=== PATIENT | male | born 1950 | race Caucasian/White ===

== ENCOUNTER 2016-09-06 19:19 | Observation (INO) ==
[2016-09-06] MEDS ORDERED: Aspirin 81 MG TAB.CHEW PO ONE (19:33)
[2016-09-06 19:52] LABS: Basophils # 0.1 K/mcL (0.0-0.2); Basophils % 0.9 %; Eosinophils # 0.2 K/mcL (0.0-0.6); Eosinophils % 2.5 %; Hemoglobin 13.7 g/dL (12.9-16.9); Immature Granulocytes % 0.4 % (0-4); Lymphocytes # 1.8 K/mcL (0.6-4.6); Lymphocytes % 26.9 %; Mean Corpuscular HGB Conc 31.9 g/dL (31.6-35.5); Mean Corpuscular Hemoglobin 28.9 pg (28.0-33.3); Mean Corpuscular Volume 90.7 fL (83.0-100.0); Mean Platelet Volume 10.2 fL (9.4-12.4); Monocytes # 0.9 K/mcL (0.0-1.3); Monocytes % 13.8 %; Neutrophils # 3.8 K/mcL (1.6-8.9); Platelet Count 233 K/mcL (140-400); Red Blood Count 4.74 M/mcL (4.19-5.50); Red Cell Distribution Width 14.2 % (11.5-14.5); Segmented Neutrophils % 55.5 %
[2016-09-06] MEDS ORDERED: Nitroglycerin 0.4 MG TAB.SUBL SL PRN (19:56)
[2016-09-06 19:59] LABS: INR 0.9; Prothrombin Time 9.9 Seconds (9.4-12.1)
--- NOTE | 2016-09-06 20:00 | Emergency Department Note ---
Disposition Clinical Impression: Unstable angina, NEHEMIAS (acute kidney injury) Disposition: Admitted As Inpatient Condition: Good Chest Pain HPI - General Chief Complaint: ED Chest Pain Stated Complaint: Chest Pain Time Seen by Provider: 09/06/16 19:24 Source: patient Mode of arrival: ambulatory Limitations: no limitations Vital Signs Reviewed: Yes Nursing Notes Reviewed: Yes - History of Present Illness HPI Narrative: 66-year-old male history of hypertension, diabetes, hyperlipidemia and ACS status post 5 stents placed presents for evaluation of chest pain. Patient states the pain started approximately 3 days ago has been intermittent. Patient 's pain 3 days ago resolved after nitroglycerin and patient became concerned and presented to ER today after the pain would not resolve entirely from his nitroglycerin. Patient's pain was nonexertional he was driving Patient states the pain is left-sided with radiation of the right arm and left jaw. Reports dyspnea as well as nausea. Patient states that he has been taking his aspirin and Plavix as directed. Patient stents were placed at [facility]. Patient's last heart catheter was last year. Patient denies any other symptoms. No fevers. No cough. 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 Duration: intermittent, now resolved Onset: during rest Pain Location: left chest Quality: heaviness Pain Radiation: RUE, jaw/teeth - Related Data Home Medications Medication Instructions Recorded Confirmed Aspirin 81 mg PO DAILY 01/07/15 05/28/16 Insulin Glargine,Hum.rec.anlog 20 unit SQ 01/07/15 05/28/16 [Lantus Solostar] Isosorbide MONOnitrate (24 HR) 60 mg PO HS 01/07/15 05/28/16 [Imdur] Levomefolate/B6/B12/Algal Oil 90 mg PO BID 01/07/15 05/28/16 [Metanx Capsule] Lisinopril [Zestril] 2.5 mg PO DAILY 01/07/15 05/28/16 Loratadine [Claritin] 10 mg PO BID 01/07/15 05/28/16 Metformin [Glucophage] 1,000 mg PO BID 01/07/15 05/28/16 Metoprolol XL (24 HR) Succ [Toprol 50 mg PO DAILY 01/07/15 05/28/16 XL] Nortriptyline [Pamelor] 75 mg PO HS 01/07/15 05/28/16 Ranolazine [Ranexa] 1,000 mg PO BID 01/07/15 05/28/16 Rosuvastatin [Crestor] 20 mg PO HS 01/07/15 05/28/16 Saxagliptin HCl [Onglyza] 5 mg PO QAM 01/07/15 05/28/16 Previous Rx's Medication Instructions Recorded Clopidogrel [Plavix] 75 mg PO HS #0 01/09/15 Omeprazole [PriLOSEC] 40 mg PO 0730 #30 capsule 01/09/15 Hydrocodone/Acetaminophen 1 each PO Q6H PRN #15 tablet 05/28/16 [Hydrocodon-Acetaminophn 10-325] Allergies Allergy/AdvReac Type Severity Reaction Status Date / Time adhesive Allergy Hives Verified 09/06/16 19:52 morphine AdvReac Intermediate hallucinati Verified 09/06/16 19:52 ons trihexyphenidyl [From Artane] AdvReac Intermediate hallucinati Verified 19:52 ons meperidine [From Demerol] AdvReac Mild blood Verified 09/06/16 19:52 pressure fluctuation All systems ED: reviewed and negative except as stated. Constitutional: Reports: as per HPI. Denies: fever Eyes: Reports: as per HPI ENT ED: Reports: as per HPI Cardiovascular: Reports: as per HPI, chest pain. Denies: palpitations Respiratory: Reports: as per HPI, dyspnea. Denies: cough Gastrointestinal: Reports: as per HPI, nausea. Denies: abdominal pain Genitourinary: Reports: as per HPI Musculoskeletal: Reports: as per HPI Integumentary: Reports: as per HPI Neurological: Reports: as per HPI Psychiatric: Reports: as per HPI Endocrine: Reports: as per HPI Chest Pain PMH - Past Medical History Medical history: Reports: coronary artery disease, diabetes, GERD, other Surgical history: Reports: angioplasty/stent, appendectomy, cholecystectomy, knee replacement, other Psychiatric history: Reports: no psych history - Social History Smoking Status: Current every day smoker Alcohol use: Reports: none Drug use: Reports: none Physical Exam - General Limitations: no limitations General appearance: alert, in no apparent distress - Head Head exam: atraumatic, normal inspection - Eye Eye exam: Present: normal appearance, EOMI. Absent: scleral icterus - ENT ENT exam: normal exam, normal oropharynx - Neck Neck exam: Present: normal inspection. Absent: trachea midline - Chest Chest inspection: Present: normal inspection, symmetric chest wall rise. Absent : tenderness - Respiratory Respiratory exam: Present: normal lung sounds bilaterally. Absent: respiratory distress - Cardiovascular Cardiovascular exam: Present: regular rate, normal rhythm - Abdominal Exam Abdominal exam: Present: soft, Non-Tender. Absent: guarding, rebound - Extremities Exam Extremities exam: Present: normal inspection. Absent: pedal edema - Back Exam Back exam: Present: normal inspection, full ROM. Absent: tenderness - Neurological Exam Neurological exam: Present: alert, oriented X3 - Skin Skin exam: Present: warm, dry, intact, normal color Course Course Narrative: Patient seen and examined upon arrival. Patient states his pain has resolved. Patient's pain would not completely resolve after his nitroglycerin earlier today. Patient had a cardiac workup including chest x-ray, EKG, labs,. Patient given full dose aspirin. Disposition likely admission. - Reevaluation(s) Reevaluation #1: Patient is pain free. Labs reviewed. Patient has no needs at this time. Time: 20:41 Reevaluation #2: Awaiting for bed on floor. Time: 23:16 Vital Signs Temperature 98.1 F 09/06/16 19:25 Pulse Rate 83 09/06/16 19:25 Respiratory Rate 20 09/06/16 19:25 Blood Pressure 125/77 09/06/16 19:25 O2 Sat by Pulse Oximetry 96 09/06/16 19:25 Temperature 98.1 F 09/06/16 19:25 Pulse Rate 74 09/06/16 22:15 Respiratory Rate 20 09/06/16 23:01 Blood Pressure 122/81 09/06/16 23:01 O2 Sat by Pulse Oximetry 96 09/06/16 22:15 Oxygen Delivery Oxygen Delivery Room Air Chest Pain - MDM Narrative Medical decision making narrative: 66-year-old male presents for evaluation of chest pain. Patient does have a cardiac history and has a concerning story and evaluation. Patient's pain has resolved in the emergency department. Patient vitals are stable. Patient's lab work reviewed. Patient's EKG shows no acute changes from prior EKG. Chest x-ray is unremarkable. Patient will be admitted to the hospitalist service for further evaluation and monitoring of his cardiac pathology. - Lab Data Lab results reviewed: Yes I reviewed the patient's lab results. Result diagrams: 09/06/16 19:37 09/06/16 19:37 Lab Results 09/06/16 09/06/16 09/06/16 Range/Units 19:37 19:37 19:37 WBC 6.8 (4.3-11.1) K/mcL RBC 4.74 (4.19-5.50) M/mcL Hgb 13.7 (12.9-16.9) g/dL Hct 43.0 (37.5-50.1) % MCV 90.7 (83.0-100.0) fL MCH 28.9 (28.0-33.3) pg MCHC 31.9 (31.6-35.5) g/dL RDW 14.2 (11.5-14.5) % Plt Count 233 (140-400) K/mcL MPV 10.2 (9.4-12.4) fL Immature Gran % 0.4 (0-4) % Seg Neutrophils % 55.5 % Lymphocytes % 26.9 % Monocytes % 13.8 % Eosinophils % 2.5 % Basophils % 0.9 % Neutrophils # 3.8 (1.6-8.9) K/mcL Lymphocytes # 1.8 (0.6-4.6) K/mcL Monocytes # 0.9 (0.0-1.3) K/mcL Eosinophils # 0.2 (0.0-0.6) K/mcL Basophils # 0.1 (0.0-0.2) K/mcL Reactive Lymphocytes Present A (Not Present) PT 9.9 (9.4-12.1) Seconds INR 0.9 APTT 32.4 (26.0-36.0) Seconds Sodium 138 (136-145) mEq/L Potassium 4.3 (3.5-4.5) mEq/L Chloride 101 (98-109) mEq/L Carbon Dioxide 25 (19-29) mEq/L BUN 12 (8-26) mg/dL Creatinine 1.27 H (0.72-1.25) mg/dL Est GFR ( Amer) > 60 (> 60) Est GFR (Non-Af Amer) 57 L (> 60) BUN/Creatinine Ratio 9 (6-26) Glucose 127 H (70-99) mg/dL Calculated Osmolality 287 (280-300) Calcium 9.7 (8.6-10.8) mg/dL Troponin I (0-0.03) ng/mL 09/06/16 Range/Units 19:37 WBC (4.3-11.1) K/mcL RBC (4.19-5.50) M/mcL Hgb (12.9-16.9) g/dL Hct (37.5-50.1) % MCV (83.0-100.0) fL MCH (28.0-33.3) pg MCHC (31.6-35.5) g/dL RDW (11.5-14.5) % Plt Count (140-400) K/mcL MPV (9.4-12.4) fL Immature Gran % (0-4) % Seg Neutrophils % % Lymphocytes % % Monocytes % % Eosinophils % % Basophils % % Neutrophils # (1.6-8.9) K/mcL Lymphocytes # (0.6-4.6) K/mcL Monocytes # (0.0-1.3) K/mcL Eosinophils # (0.0-0.6) K/mcL Basophils # (0.0-0.2) K/mcL Reactive Lymphocytes (Not Present) PT (9.4-12.1) Seconds INR APTT (26.0-36.0) Seconds Sodium (136-145) mEq/L Potassium (3.5-4.5) mEq/L Chloride (98-109) mEq/L Carbon Dioxide (19-29) mEq/L BUN (8-26) mg/dL Creatinine (0.72-1.25) mg/dL Est GFR ( Amer) (> 60) Est GFR (Non-Af Amer) (> 60) BUN/Creatinine Ratio (6-26) Glucose (70-99) mg/dL Calculated Osmolality (280-300) Calcium (8.6-10.8) mg/dL Troponin I 0.00 (0-0.03) ng/mL - Radiology Data Radiology results reviewed: Yes I reviewed the patient's radiology results. Chest X-Ray 09/06/16 19:33 IMPRESSION: 1. No acute cardiopulmonary disease. D/ / Dwayne Pate MD / Dwayne Pate MD Interpreting Provider: Dwayne Pate MD - EKG Data EKG shows normal: sinus rhythm Rate: normal Rhythm: NSR [place]/QRS: left axis deviation Q waves: v1 T wave inversions noted in: III, aVF QTc: other (424) Interpretation: no acute changes, unchanged when compared to prior tracing (date ) (04/2015), nonspecific ST-T wave changes Heart Score - Score History: Highly Suspicious EKG: Non Specific repolarisation Disturbance Age: 45-65 Risk Factors: Equal/Greater than 3 risk factor or history of atherosclerotic disease Troponin: Less than normal limit HEART Score Total: 6 S.B.A.R. - S.B.A.RLyudmila Situation: Demographics Background: Presenting Complaint Assessment: Vital Signs, Course and respsone to treatment Recommendation: Barrier(s) to disposition, Recommendation based on pending studies, treatments, or consults S.B.A.RLyudmila Report Given to: Dr. Silverman SLyudmilaBLyudmilaAImmanuel Repor Time: 21:12 Attestation Statement - Attestation Attestation: I examined this patient and my medical decision-making was reviewed with the INCOME TAX AUDITOR/PA/Advanced Practice Nurse/Resident Physician. I agree with the documented findings, disposition and treatment plan as described except to the extent set forth below. Patient to the emergency department with a chief complaint of chest pain. He has had 3-4 episodes over the past couple of days. The last one happened tonight while he was driving. Substernal chest pressure radiating down his right arm. Also pain in his left jaw. Associated with nausea and diaphoresis. He has an extensive cardiac history including 5 stents. Last stress test with a year ago. Patient's pain resolved tonight up to 3 nitroglycerin. On examination he is awake alert comfortable sitting up in bed in no acute distress. Vital signs stable. Heart regular lungs clear. Plan. EKG is unchanged from prior. Cardiac workup and admission.
[2016-09-06 20:02] LABS: Activated Partial Thrombo Time 32.4 Seconds (26.0-36.0)
[2016-09-06 20:04] LABS: BUN/Creatinine Ratio 9 (6-26); Blood Urea Nitrogen 12 mg/dL (8-26); Calcium 9.7 mg/dL (8.6-10.8); Carbon Dioxide 25 mEq/L (19-29); Chloride 101 mEq/L (98-109); Glucose 127 mg/dL (70-99); Osmolality,Calculated 287 (280-300); Potassium 4.3 mEq/L (3.5-4.5); Sodium 138 mEq/L (136-145); eGFR For African Americans > 60 (> 60); eGFR For Non-African Americans 57 (> 60)
[2016-09-06 20:12] LABS: Reactive Lymphocytes Present (Not Present)
[2016-09-06] MEDS ORDERED: Naloxone 0.4 MG/ML INJ IVP PRN (21:46)
[2016-09-06] MEDS ORDERED: Acetaminophen 325 MG TABLET PO PRN (21:48)
[2016-09-06] MEDS ORDERED: 0.9 % Sodium Chloride 1,000 ML IVC SCH (22:00)
--- NOTE | 2016-09-06 22:16 | Event Note ---
Date of Encounter: 09/06/16 Time of Encounter: 22:14 1. Chest pain with history of CAD status post 5 stents, nitro helped ECHO ordered Continue aspirin and Plavix, stress test for the morning 2. Hypertension, stable 3. GERD, stable 4. Diabetes type 2 insulin-dependent weeks Continue insulin sliding scale Please review H and P written by DAHIANA Arcos.
--- NOTE | 2016-09-06 22:22 | Internal Med History&Physical ---
<Lilli Arcos - Last Filed: 09/06/16 22:23> Date of Encounter: 09/06/16 Time of Encounter: 22:18 Assessment and Plan (1) Chest pain Current visit: No Status: Acute 1 patient has been experiencing intermittent chest pain past 3 days which has been relieved with nitroglycerin however today for chest pain not relieved with nitroglycerin. 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 Presently he is chest pain-free prescribed troponins negative will continue to cycle cardiac troponins 2 we will continue with statin Plavix aspirin and beta zack and we will hold these for now due to elevated creatinine recently once back to baseline 3 obtain cardiac echo 4 patient nothing by mouth after midnight cardiac stress in the a.m. we will hold beta zack and resume after cardiac stress 5 have patient follow-up with cardiology as outpatient consult as needed 6 continuous cardiac monitoring 7 nitroglycerin as needed for chest pain 8 oxygen as needed and maintain SPO2 greater than 92% Qualifiers: Chest pain type: unspecified Qualified Code(s): R07.9 - Chest pain, unspecified (2) NEHEMIAS (acute kidney injury) Current visit: Yes Status: Acute 1. The patient's creatinine is 1.27 baseline appears to be around 1. Patient is on lisinopril as well as metformin will hold these for now and resume once back to baseline 2 we will give gentle IV fluids overnight and we will recheck creatinine in a.m. 3 we will avoid nephrotoxins (3) HTN (hypertension) Current visit: Yes Status: Acute 1 she has been hypotensive we will hold lisinopril for now and resume once creatinine /blood pressure back to baseline 2 low sodium diet Qualifiers: Hypertension type: essential hypertension Qualified Code(s): I10 - Essential (primary) hypertension (4) Diabetes Current visit: No Status: Chronic 1 patient is on oral antidiabetics as well as basal insulin. We will hold oral antidiabetic for now Accu-Cheks before meals at bedtime. Patient will be nothing by mouth after midnight and check Accu-Cheks every 6 hours half patient' s basal dose this evening and give sliding scale as needed. Qualifiers: Diabetes mellitus type: type 2 Diabetes mellitus complication status: without complication Qualified Code(s): E11.9 - Type 2 diabetes mellitus without complications (5) DVT prophylaxis Current visit: Yes Status: Acute 1 [facility] Internal Medicine - H&P: HPI Chief complaint: cp Admitted From: Emergency Dept Plans for Post Hospital Care: Home History of present illness: Mr. Simmons is a 66 year old male past medical hx of hypertension diabetes hyperlipidemia ACL status post 5 stents stent in 2012. Patient he has been experiencing intermittent chest pain for 3 days and chest pain has been resolved with nitroglycerin today patient experiencing left-sided chest pain radiating to right arm and left jaw was nonexertional occurring while he was driving. Associated symptoms of nausea and diaphoresis he did take 3 nitroglycerin without any relief. He presented to the ER for further evaluation. According to ER records first cardiac Troponin was 0.0, creatinine was 1.27 rest of lab work unremarkable chest x-ray with no acute process EKG normal sinus rhythm with no changes from previous EKG. Patient was given baby aspirin he was admitted for further evaluation. Obi patient denies any chest pain or palpitations however he does state he feels very fatigued and experiencing general malaise. He does not appear to be any respiratory distress is on sounds are clear heart sounds S1 and S2 with no rubs gallops murmurs or clicks noted. Patient states that he normally sees cardiology at [facility] his last cardiac catheter was then 2015 at that time he said he has chronically 60% blockage of a does not know where the blockage is located. He is hemodynamically stable at this time review this case with Dr. Paz who agrees with plan Past Med Surg Social Fam HX - Past Medical History Medical history: coronary artery disease, diabetes, GERD, other Psychiatric history: no psych history - Past Surgical History Surgical History: angioplasty/stent, appendectomy, cholecystectomy, knee replacement, other - Social History Smoking Status: Current every day smoker Smokeless Tobacco Status: No Alcohol use: none Drug use: none - Family History Mother Hx Family Cardiac Disorders: Yes Internal Medicine - H&P: Meds Aspirin 81 mg PO DAILY 01/07/15 [History] Insulin Glargine,Hum.rec.anlog [Lantus Solostar] 20 unit SQ HS 01/07/15 [History ] Isosorbide MONOnitrate (24 HR) [Imdur] 60 mg PO HS 01/07/15 [History] Levomefolate/B6/B12/Algal Oil [Metanx Capsule] 90 mg PO BID 01/07/15 [History] Lisinopril [Zestril] 2.5 mg PO DAILY 01/07/15 [History] Loratadine [Claritin] 10 mg PO BID 01/07/15 [History] Metformin [Glucophage] 1,000 mg PO BID 01/07/15 [History] Metoprolol XL (24 HR) Succ [Toprol XL] 50 mg PO DAILY 01/07/15 [History] Nortriptyline [Pamelor] 75 mg PO HS 01/07/15 [History] Ranolazine [Ranexa] 1,000 mg PO BID 01/07/15 [History] Rosuvastatin [Crestor] 20 mg PO HS 01/07/15 [History] Saxagliptin HCl [Onglyza] 5 mg PO QAM 01/07/15 [History] Clopidogrel [Plavix] 75 mg PO HS #0 01/09/15 [Rx] Omeprazole [PriLOSEC] 40 mg PO 0730 #30 capsule 01/09/15 [Rx] Hydrocodone/Acetaminophen [Hydrocodon-Acetaminophn 10-325] 1 each PO Q6H PRN # 15 tablet 05/28/16 [Rx] Allergies adhesive Allergy (Verified 09/06/16 19:52) Hives morphine Adverse Reaction (Intermediate, Verified 09/06/16 19:52) hallucinations trihexyphenidyl [From Artane] Adverse Reaction (Intermediate, Verified 09/06/16 19:52) hallucinations meperidine [From Demerol] Adverse Reaction (Mild, Verified 09/06/16 19:52) blood pressure fluctuation All Systems PM: A 10-system review of systems was performed and is negative for pertinent findings except as documented above in the HPI. - Constitutional Constitutional: fatigue, malaise - Cardiovascular Cardiovascular ROS IM: chest pain - Respiratory Respiratory: no cough, no dyspnea, no wheezing, no excessive phlegm production - Gastrointestinal Gastrointestinal: nausea - Musculoskeletal Musculoskeletal ROS IM: no numbness, no tingling - Integumentary Integumentary IM: no rash, no unusual bruising - Neurological Neurological ROS: no confusion, no convulsions, no focal weakness, no numbness, no tingling, no tremor(s) - Constitutional Vitals: Temp Pulse Resp BP Pulse Ox 98.1 F 81 20 119/87 95 09/06/16 19:25 09/06/16 21:15 09/06/16 21:15 09/06/16 21:15 09/06/16 21:15 General appearance: Present: A&O X 3, answers questions appropriately - Head Head exam: Present: atraumatic, normocephalic - Eye Eye exam: Present: PERRL, conjuntiva pink, sclera anicteric Pupils: Present: PERRL - Neck Neck exam general surgery: Present: supple, trachea midline. Absent: lymphadenopathy - Respiratory Respiratory exam: Present: CTAB. Absent: accessory muscle use, rales, rhonchi, wheezes - Cardiovascular Cardiovascular exam: Present: RRR, +S1, +S2. Absent: diastolic murmur, gallop, rubs, systolic murmur - GI/Abdominal GI/Abdominal exam: Present: normal bowel sounds, soft, no peritoneal signs. Absent: distended, tenderness - Extremities Exam Extremities exam: Present: warm, radial pulses palpable and symetrical. Absent : calf tenderness, cyanotic, pedal edema - Neurological Exam Neurological exam: Present: CN II-XII intact, oriented X3, no focal deficits. Absent: pronater drift, facial droop, speech deficit - Skin Skin exam: Present: dry, intact Internal Med - H&P Results - Labs CBC & Chem 7: 09/06/16 19:37 09/06/16 19:37 - EKG Data EKG shows normal: sinus rhythm - EKG Data Prior EKG available for review: yes When compared to previous EKG: there is no significant change - Diagnostic Studies Chest x-ray Additional comments: Chest X-Ray 09/06/16 19:33 IMPRESSION: 1. No acute cardiopulmonary disease. D/ / Dwayne Pate MD / Dwayne Pate MD Interpreting Provider: Dwayne Pate MD <Talon Harman H - Last Filed: 09/06/16 23:25> Date of Encounter: 09/06/16 Internal Medicine - H&P: HPI History of present illness: Mr. Simmons is a 66 year old male All Systems PM: A 10-system review of systems was performed and is negative for pertinent findings except as documented above in the HPI. - Constitutional Vitals: Temp Pulse Resp BP Pulse Ox 98.1 F 74 20 122/81 96 09/06/16 19:25 09/06/16 22:15 09/06/16 23:01 09/06/16 23:01 09/06/16 22:15 Internal Med - H&P Results - Labs CBC & Chem 7: 09/06/16 19:37 09/06/16 19:37 - Attending Attestation 1. Chest pain with history of CAD status post 5 stents, nitro helped ECHO ordered Continue aspirin and Plavix, stress test for the morning 2. Hypertension, stable 3. GERD, stable 4. Diabetes type 2 insulin-dependent weeks Continue insulin sliding scale Please review H and P written by DAHIANA Arcos. I examined this patient and my medical decision-making was reviewed with the VALUATION MANAGER/PA/Advanced Practice Nurse/Resident Physician. I agree with the documented findings, disposition and treatment plan as described except to the extent set forth below.
[2016-09-06] MEDS ORDERED: Dextrose Gel 15 GM PO PRN ×2 (23:24)
[2016-09-06] MEDS ORDERED: D5% in Water 1,000 ML IVC PRN (23:24)
[2016-09-06] MEDS ORDERED: *HR* Dextrose 50 % in Water (Syg) 50 ML SYRINGE IVP PRN (23:24)
[2016-09-07 01:48] LABS: Basophils % 0.6 %; Eosinophils # 0.1 K/mcL (0.0-0.6); Eosinophils % 2.3 %; Hematocrit 40.7 % (37.5-50.1); Immature Granulocytes % 0.5 % (0-4); Lymphocytes # 2.1 K/mcL (0.6-4.6); Lymphocytes % 34.2 %; Mean Corpuscular HGB Conc 31.9 g/dL (31.6-35.5); Mean Corpuscular Hemoglobin 28.7 pg (28.0-33.3); Mean Corpuscular Volume 89.8 fL (83.0-100.0); Mean Platelet Volume 10.2 fL (9.4-12.4); Monocytes # 0.7 K/mcL (0.0-1.3); Monocytes % 10.8 %; Neutrophils # 3.2 K/mcL (1.6-8.9); Platelet Count 220 K/mcL (140-400); Red Blood Count 4.53 M/mcL (4.19-5.50); Red Cell Distribution Width 14.3 % (11.5-14.5); Segmented Neutrophils % 51.6 %
[2016-09-07 01:52] LABS: BUN/Creatinine Ratio 13 (6-26); Blood Urea Nitrogen 13 mg/dL (8-26); Calcium 9.2 mg/dL (8.6-10.8); Carbon Dioxide 24 mEq/L (19-29); Chloride 104 mEq/L (98-109); Chol/HDL Ratio 3.8 (0-4.9); Cholesterol 133 mg/dL (< 200); Glucose 128 mg/dL (70-99); HDL Cholesterol 35 mg/dL (40-59); LDL Cholesterol,Calculated 57 mg/dL (0-99); Osmolality,Calculated 288 (280-300); Potassium 3.8 mEq/L (3.5-4.5); Sodium 138 mEq/L (136-145); Triglycerides 206 mg/dL (< 150); eGFR For African Americans > 60 (> 60); eGFR For Non-African Americans > 60 (> 60)
[2016-09-07] MEDS ORDERED: Regadenoson 0.4 MG/5 ML SYRINGE IVP ONE (06:24)
[2016-09-07] MEDS ORDERED: Aspirin 81 MG TAB.CHEW PO SCH (09:00)
[2016-09-07] MEDS ORDERED: Ranolazine 500 MG TAB.ER.12H PO SCH (09:00)
[2016-09-07] MEDS ORDERED: Metoprolol XL (24 HR) Succ 50 MG TAB.ER.24H PO SCH (09:00)
[2016-09-07 11:19] VITALS: BP 124/80
[2016-09-07] MEDS: Insulin LISPRO 300 UNITS/3 ML VIAL SQ SCH (11:33)
--- NOTE | 2016-09-07 11:38 | ECHO - Doppler Report ---
Echocardiogram Name: Scott Simmons Date of Study: 09/07/2016 Date: 1950 Ht: 67.0 in Medical Record#: [id number] Age: 66 Wt: 250.0 lb Gender: Male BSA: 2.22 Order #: [id number] Location: [facility] Room #: 3B37 Reading Physician: Donovan Hays MD, [facility] Assistant District Attorney: Jerzy Hightower RDCS Ordering Physician: Lilli Arcos CNP Primary Physician: Shimon Solano DO Indications: Chest pain Impressions: LVEF 60-65%. Mild concentric left ventricular hypertrophy. No evidence of pulmonary hypertension. No significant valvular dysfunction. Left Ventricular Wall Motion: Rest Echo Findings All wall segments showed normal motion. Findings: Study Quality * Technically adequate exam. Right Ventricle * Normal right ventricular structure and function. Left Atrium * Normal left atrial size. Aortic Valve * Trileaflet aortic valve with normal function. Mitral Valve * Normal mitral valve structure and function. Aorta * Normally sized aortic root. Pericardium * The pericardium appears normal. ECG Findings * Normal sinus rhythm. Tricuspid Valve * Trace tricuspid regurgitation. * No evidence of pulmonary hypertension. * Estimated RVSP is 17 mmHg. * No tricuspid stenosis. Pulmonic Valve * No pulmonic stenosis. * No pulmonic regurgitation. Left Ventricle * LVEF 60-65%. * Mild concentric left ventricular hypertrophy. * Indeterminate diastolic function. Interatrial Septum * Interatrial septum not well evaluated. Right Atrium * Right atrium is not well visualized. History Hypertension Diabetes Hypercholesteremia History of Smoking Years 46 Packs Family History of CAD History of CAD/PTCA Myocardial Infarction 07/11/15 a Previous Echo was performed. Measurements: BP: 120/ 79 2D Normal Values RVIDd: 3.09 cm <2.7 cm IVSd: 1.20 cm 0.6 - 1.0 cm LVIDd: 4.53 cm 3.7 - 5.6 cm LVPWd: 1.23 cm 0.6 - 1.1 cm LVIDs: 3.17 cm 1.5 - 3.6 cm AO: 3.50 cm < 4.0 cm LA: 3.50 cm 2.0 - 4.0cm %FS: 30.00 cm >25 % LA volume: 35 Mitral Valve Peak E:.44 m/sec Peak A:.83 m/sec E/A Ratio:0.5 Peak E' Lat Mamadou:11 cm/s Peak E' Med Mamadou:5.87 cm/s E/E' Lat Ratio:4 E/E' Med Ratio:7.5 Tricuspid Valve TV Regurg Peak Grad: 18.00mmHg TV Regurg Peak Mamadou: 2.13m/sec Updated by Donovan Hays MD, [facility] on 09/07/2016 11:33:18 AM electronically signed on 09/07/2016 11:33:34 AM with status of Final Wall Motion Perez: 1=Normal, 2=Hypokinesis, 3=Akinesis, 4=Dyskinesis, 5=Aneurysmal, 6=Hyperkinetic, X=Not Visualized (Blank)=Missing
--- NOTE | 2016-09-07 11:52 | Nuclear Medicine Stress Report ---
Regadenoson Nuclear Stress Name: Scott Simmons Date of Study: 09/07/2016 Date: 1950 Ht: 67.0 in Medical Record#: [id number] Age: 66 Wt: 174.0 lb Gender: Male Order #: [id number] Location: [facility] Room: [place] Supervising Provider: Jonathon Tavera CNP Reading Physician: Donovan Hays MD, [facility] Ordering Physician: Amalia Yost CNP Primary Care Physician: Shimon Solano DO Stress Technologist: Lela Flores, [place] I&C Technician: Iggy Gaines Indications: Chest Pain, Coronary Artery Disease Impression: Perfusion imaging was negative for ischemia or infarct. Pharmacologic ECG was non diagnostic for ischemia. Patient had no chest pain with stress. Normal hemodynamic response. Gated EF = 69%. There is no evidence of TID. History: Hypertension Diabetes Hypercholesteremia History of Smoking Prior PCI Stress Test Summary: Stress Test Type: Treadmill Regadenoson 0.4mg/5ml given IV Protocol: Donovan Baseline Information: Initial Heart Rate: 89 Blood Pressure: 112/78 Stress Information: Test Terminated Due to (primary): As per protocol Maximum Blood Pressure: 118/62 Maximum Heart Rate: 104 Percent Maximum Heart Rate Achieved: 67 Double Product: 44722 METS Reached: 1 Symptoms: Shortness of breath Nuclear Summary: SPECT myocardial perfusion imaging using Tc99m Sestamibi given intravenously was performed at rest and following cardiac stress testing. The resting images were obtained following initial dose of 11.5 mCi. Following stress an additional dose of 34.9 mCi was given at peak exercise or 30 seconds post regadenoson infusion. Medication Given: Time Medication Dose Units Route Findings: Stress Note * Resting ECG demonstrated normal sinus rhythm. * No baseline arrhythmias were noted. * Pharmacologic stress ECG is non diagnostic for ischemia due to failure to reach target heartrate. * Occasional PVCs noted during stress. * Patient had no chest pain during stress. Hemodynamic responses * Normal hemodynamic responses to pharmacologic stress. Study Quality * Study quality is good. Gated EF % * Gated EF = 69%. Left Ventricle * The left ventricle is not dilated. NORMALS * Normal wall motion. * Normal segmental perfusion in stress. * Normal Segmental Perfusion in rest. TID * No evidence of transient ischemic dilatation. Updated by Donovan Hays MD, FACC on 09/07/2016 11:46:42 AM electronically signed on 09/07/2016 11:47:22 AM with status of Final
--- NOTE | 2016-09-07 13:23 | Discharge Summary ---
Date of Encounter: 09/07/16 Time of Encounter: 12:30 - Discharge Diagnosis (1) Chest pain Priority: Primary Status: Resolved Comments: Patient denied chest pain or shortness of breath throughout this admission. Chest x-ray negative. Troponins negative. Echocardiogram unremarkable. Stress test negative. ACS ruled out. (2) GERD (gastroesophageal reflux disease) Priority: Secondary Status: Chronic Comments: Denies current symptoms Qualifiers: Esophagitis presence: esophagitis presence not specified Qualified Code(s) : K21.9 - Gastro-esophageal reflux disease without esophagitis (3) Coronary artery disease Priority: Secondary Status: Chronic (4) Diabetes Priority: Secondary Status: Chronic Comments: Relatively well controlled with an A1c of 7.3%, recommend continued follow-up outpatient. (5) Hyperlipemia Priority: Secondary Status: Chronic Comments: Triglycerides elevated, rest of lipid panel unremarkable. Recommend continue statin and low-cholesterol diet. Qualifiers: Hyperlipidemia type: mixed hyperlipidemia Qualified Code(s): E78.2 - Mixed hyperlipidemia (6) History of Parkinson's disease Priority: Secondary Status: Chronic (7) NEHEMIAS (acute kidney injury) Priority: Primary Status: Resolved (8) HTN (hypertension) Priority: Secondary Status: Chronic Comments: Controlled with his regular home medications, follow up outpatient Qualifiers: Hypertension type: essential hypertension Qualified Code(s): I10 - Essential (primary) hypertension (9) DVT prophylaxis Priority: Primary Status: Acute Comments: Observation patient. Up ad vasiliy. - Discharge Medications Home Medications: Aspirin 81 mg PO DAILY 01/07/15 [History] Isosorbide MONOnitrate (24 HR) [Imdur] 60 mg PO DAILY 01/07/15 [History] Lisinopril [Zestril] 2.5 mg PO DAILY 01/07/15 [History] Loratadine [Claritin] 10 mg PO BID 01/07/15 [History] Metformin [Glucophage] 1,000 mg PO BID 01/07/15 [History] Metoprolol XL (24 HR) Succ [Toprol XL] 50 mg PO DAILY 01/07/15 [History] Nortriptyline [Pamelor] 75 mg PO HS 01/07/15 [History] Ranolazine [Ranexa] 1,000 mg PO BID 01/07/15 [History] Rosuvastatin [Crestor] 20 mg PO HS 01/07/15 [History] Saxagliptin HCl [Onglyza] 5 mg PO QAM 01/07/15 [History] Clopidogrel [Plavix] 75 mg PO HS #0 01/09/15 [Rx] Amlodipine [Norvasc] 5 mg PO HS 09/06/16 [History] Carbidopa/Levodopa/Entacapone [Stalevo 100 Tablet] 1 each PO QID 09/06/16 [ History] Isosorbide MONOnitrate (24 HR) [Imdur] 30 mg PO HS 09/06/16 [History] Lansoprazole [Prevacid] 30 mg PO BID 09/06/16 [History] Allergies/Adverse Reactions: Allergies adhesive Allergy (Verified 09/06/16 19:52) Hives morphine Adverse Reaction (Intermediate, Verified 09/06/16 19:52) hallucinations trihexyphenidyl [From Artane] Adverse Reaction (Intermediate, Verified 09/06/16 19:52) hallucinations meperidine [From Demerol] Adverse Reaction (Mild, Verified 09/06/16 19:52) blood pressure fluctuation Procedures/tests Complete & Pending: Procedures Performed prior 72 hours Category Date Time Status NM madyson perf SPECT multi [NM] Routine Exams 09/06/16 22:17 Taken EV echocardiogram Routine Y 09/07/16 21:52 Completed SP pharm nuclear stress Routine Y 09/06/16 22:16 Completed Date of admission: 09/06/16 21:26 Primary care physician: Shimon Solano Discharging clinician: Amalia Yost Anticipated date of discharge: 09/07/16 - Patient Status Disposition: Home, Self-Care Condition: Good Functional capacity at discharge: independent ambulation Overall status at discharge: patient is back to baseline - Discharge Instructions Follow Up With: Shimon Solano DO [Primary Care Provider] - Additional Instructions: Follow-up with primary care provider within one to 2 weeks - Diet and Activity Activity: increase activity as tolerated Diet: diabetic diet, low fat, low cholesterol, low salt diet Hospital course: Mr. Simmons is a 66 year old male with past medical history of hypertension, diabetes, hyperlipidemia, CAD status post stent 5. Patient stating he had been experiencing intermittent chest pains 3 days and the chest pain on the day of presentation had resolved with nitroglycerin and he began to experience left-sided chest pain that radiated to his right arm and left jaw that was exertional while he was driving. Associated symptoms include nausea and diaphoresis and he took 3 nitroglycerin tablets without relief. Workup in the emergency department unremarkable other than a mild acute kidney injury. Chest x-ray negative. Patient was admitted to the hospitalist service for further evaluation and management. Troponins negative 3. Echocardiogram unremarkable with ejection fraction of 60-65%. Nuclear stress test negative for skin meal or infarct. Patient denied chest pain or shortness of breath throughout this admission. Acute coronary syndrome ruled out. Acute kidney injury also resolved. He was discharged home in stable condition with close outpatient follow-up recommended. ITS Impressions Chest X-Ray 09/06/16 19:33 IMPRESSION: 1. No acute cardiopulmonary disease. D/ / Dwayne Pate MD / Dwayne Pate MD Interpreting Provider: Dwayne Pate MD Echocardiogram impressions: LVEF 60-65%. Mild concentric left ventricular hypertrophy. No Evidence of pulmonary hypertension. No significant valvular dysfunction. Regadenosen nuclear stress test impression: Perfusion imaging was negative for ischemia or infarct. Pharmacologic ECG is nondiagnostic for ischemia. Patient had no chest pain with stress. Normal hemodynamic response. Gated ejection fraction equals 69%. There is no evidence of TID - Time Spent with Patient Total time spent providing and/or coordinating discharge services: - Constitutional Vitals: Temp Pulse Resp BP Pulse Ox 98.0 F 82 15 124/80 95 09/07/16 11:18 09/07/16 11:18 09/07/16 11:18 09/07/16 11:18 09/07/16 11:18 General appearance: Present: A&O X 3, pleasant, no acute distress, answers questions appropriately - Head Head exam: Present: atraumatic, normocephalic - Eye Eye exam: Present: PERRL, conjuntiva pink, sclera anicteric Pupils: Present: PERRL - Neck Neck exam general surgery: Present: supple, trachea midline. Absent: lymphadenopathy - Respiratory Respiratory exam: Present: CTAB. Absent: accessory muscle use, rales, respiratory distress, rhonchi, wheezes - Cardiovascular Cardiovascular exam: Present: RRR, +S1, +S2. Absent: diastolic murmur, gallop, rubs, systolic murmur - GI/Abdominal GI/Abdominal exam: Present: normal bowel sounds, soft, no peritoneal signs. Absent: distended, tenderness - Extremities Exam Extremities exam: Present: warm, radial pulses palpable and symetrical. Absent : calf tenderness, cyanotic, pedal edema - Neurological Exam Neurological exam: Present: alert, CN II-XII intact, normal gait, oriented X3, no focal deficits, strengths equal and symetr throughout. Absent: pronater drift, facial droop, speech deficit - Skin Skin exam: Present: dry, intact, normal color, warm
--- NOTE | 2016-09-07 20:34 | Electrocardiograph Report ---
[address] [address] Test Date: 2016-09-06 Pat Name: Scott Simmons Department: 102 Room: 3B Gender: M [employer]: : 1950 Requested By: Mary See Order Number: [id number] Reading MD: Donovan Hays MD Measurements Intervals [place] Rate: 81 P: 11 VT: 190 QRS: -40 QRSD: 115 T: -9 QT: 386 QTc: 424 Interpretive Statements SINUS RHYTHM MARKED LEFT AXIS DEVIATION Poor R wave progression Electronically Signed On 09-07-2016 20:32:54 EDT by Donovan Hays MD
[2016-09-07] MEDS ORDERED: Isosorbide MONOnitrate (24 HR) 60 MG TAB.ER.24H PO SCH (21:00)
[2016-09-07] MEDS ORDERED: Insulin LISPRO 300 UNITS/3 ML VIAL SQ SCH (21:00)
== END 2016-09-07 15:37 | disposition home or self-care (01) ==
LOC: EMEROO 19:19 → 3BNU 19:19
PROVIDERS: ADMIT Internal Medicine; ATTEND Nurse Practitioner Family

== ENCOUNTER 2018-10-03 16:22 | Observation (INO) ==
--- NOTE | 2018-10-03 16:28 | Emergency Department Note ---
Disposition Clinical Impression: Transient cerebral ischemia, Low blood sugar, Generalized weakness Disposition: Admitted As Inpatient Condition: Fair Time of Disposition: 02:14 General Adult HPI - General Chief complaint: ED Neuro Symptoms/Deficit Stated complaint: neuro symptoms Time Seen by Provider: 10/03/18 16:28 - History of Present Illness HPI Narrative: 68-year-old male past medical history of Parkinson's disease previous TIAs presenting greater than 24 hours after onset of neuro symptoms. Patient states approximately 12 PM yesterday he developed lightheadedness, dizziness, upper lip numbness, upper family shaking and lower extremities weakness the point where he was not able to put weight on his legs. Patient states the symptoms continued and proximally 6 PM that night and spontaneous resolved. Patient states he is asymptomatic at this time has no pain, review systems is negative he has no other concerns or complaints at this time. Onset (ago): day(s) Pain Scale: 0 - Related Data Home Medications Medication Instructions Recorded Confirmed Aspirin 81 mg PO DAILY 01/07/15 10/03/18 Nortriptyline [Pamelor] 75 mg PO HS 01/07/15 10/04/18 metFORMIN [Glucophage] 1,000 mg PO BID 01/07/15 10/04/18 amLODIPine [Norvasc] 5 mg PO HS 09/06/16 10/04/18 Metoprolol [Lopressor] 100 mg PO BID 09/07/16 10/04/18 Atorvastatin [Lipitor] 40 mg PO HS 10/03/18 10/04/18 Metoclopramide [Reglan] 10 mg PO DAILY 10/03/18 10/04/18 raNITIdine HCl [Ranitidine HCl] 150 mg PO BID 10/03/18 10/04/18 Carbidopa/Levodopa ER 50/200 1 tab PO TID 10/04/18 10/04/18 [Sinemet ER 50-200 Tab] Clopidogrel [Plavix] 75 mg PO DAILY 10/04/18 10/04/18 Isosorbide MONOnitrate (24 HR) 60 mg PO BID 10/04/18 10/04/18 [Imdur] Loratadine [Allergy Relief] 10 mg PO DAILY 10/04/18 10/04/18 Nitroglycerin [Nitrostat] 0.4 mg PO Q5MIN PRN 05/20/19 05/20/19 Ranolazine [Ranexa] 1,000 mg PO BID 10/04/18 10/04/18 Allergies Allergy/AdvReac Type Severity Reaction Status Date / Time adhesive Allergy Hives Verified 10/04/18 16:00 morphine AdvReac Intermediate hallucinati Verified 10/04/18 16:00 ons trihexyphenidyl [From Artane] AdvReac Intermediate hallucinati Verified 10/04/18 16:00 ons meperidine [From Demerol] AdvReac Mild blood Verified 10/04/18 16:00 pressure fluctuation Review of Systems: Constitutional: Denies: fever, chills Cardiovascular: Denies: chest pain Respiratory: Denies: dyspnea Gastrointestinal: Denies: abdominal pain, nausea, vomiting, diarrhea, constipation, hematemesis, melena, hematochezia Genitourinary: Denies: hematuria Musculoskeletal: Denies: back pain, neck pain Integumentary: Denies: rash Neurological: Denies: headache, weakness, numbness, paresthesias Endocrine: Denies: fatigue Hematological/Lymphatic: Denies: easy bleeding, easy bruising, lymphadenopathy All systems ED: reviewed and negative except as stated. Review of Systems: As Per HPI Past Medical History - Past Medical History Medical history: Reports: cancer, coronary artery disease, diabetes, GERD, hyperlipidemia, hypertension, myocardial infarction, other Surgical history: Reports: angioplasty/stent, appendectomy, cataract, cholecystectomy, knee replacement, vascular surgery, other Psychiatric history: Reports: no psych history - Social History Smoking Status: Current every day smoker Smokeless Tobacco Status: No Alcohol use: Reports: none Drug use: Reports: none Physical Exam NIH score is 0 Constitutional: No acute distress, [id number], engaged to conversation, speech is fluid, answers questions appropriately Neuro: GCS 15, CN II-XII are grossly intact, reflexes 2/4 in bilateral upper and lower extremities, strength 5/5 in bilateral upper and lower extremities Head: Atraumatic, normocephalic Eyes: Pupils equal, round and reactive to light, external ocular muscles intact, no scleral icterus, no conjunctival injection, no nystagmus. Mouth: Mucous membranes are moist, oropharynx is without edema, erythema, or exudate. No tongue swelling, lip swelling, perioral cyanosis, drooling, or trismus. Neck: Trachea midline without deviation. Anterior neck is supple without swelling, no lymphadenopathy or thyromegaly noted. Chest: Symmetric chest wall rise Heart: Cardiac rhythm and rate are regular with S1 and S2 , no S3 or S4 appreciated, no murmurs, rubs, or clicks. Lungs: Lungs are clear to auscultation bilaterally, without accessory muscle use or prolonged expiratory phase. No wheezes or stridor appreciated. Abdomen: Abdomen is flat, soft to palpation, normal bowel sounds, no evidence of bruising, surgical incisions, or abnormal mass. No abdominal bruit auscultated. Non-distended, non-rigid, no organomegaly, no ascites appreciated. No pulsatile mass, no tenderness or guarding to palpation, no rebound Extremities: No pedal edema, joint swelling or erythema. Pulses/motor/sensory intact in all 4 extremities. Psychiatric exam: Patient displays a normal affect and mood for the environment. No overt signs of hallucination. Integumentary: warm, dry, intact, normal color. No rash, cyanosis, diaphoresis, erythema, or pallor - General Limitations: no limitations General appearance: alert, in no apparent distress Course Course Narrative: Basic labs, CT scan of the head Vital Signs Temperature 97.9 F 10/03/18 16:24 Pulse Rate 69 10/03/18 16:24 Respiratory Rate 18 10/03/18 16:24 Blood Pressure 129/77 10/03/18 16:24 O2 Sat by Pulse Oximetry 95 10/03/18 16:24 Temperature 97.9 F 10/03/18 23:29 Pulse Rate 62 10/03/18 23:29 Respiratory Rate 16 10/03/18 23:29 Blood Pressure 113/73 10/03/18 23:29 O2 Sat by Pulse Oximetry 94 10/03/18 23:29 Oxygen Delivery Oxygen Delivery Room Air Medical Decision Making - [facility] Narrative Medical decision making narrative: Patient's laboratory, EKG, and imaging results negative for acute pathology Patient admitted to hospital medicine service further evaluation and management of TIA. - Lab Data Lab results reviewed: Yes I reviewed the patient's lab results. Result diagrams: 10/04/18 02:30 10/04/18 07:04 Lab Results 10/03/18 10/03/18 10/03/18 Range/Units 17:34 17:34 18:38 WBC 7.0 (4.3-11.1) K/mcL RBC 4.08 L (4.19-5.50) M/mcL Hgb 12.5 L (12.9-16.9) g/dL Hct 39.0 (37.5-50.1) % MCV 95.6 (83.0-100.0) fL MCH 30.6 (28.0-33.3) pg MCHC 32.1 (31.6-35.5) g/dL RDW 13.4 (11.5-14.5) % Plt Count 209 (140-400) K/mcL MPV 10.2 (9.4-12.4) fL Sodium 137 (136-145) mEq/L Potassium 4.6 (3.5-5.1) mEq/L Chloride 100 (98-107) mEq/L Carbon Dioxide 27 (23-29) mEq/L BUN 16 (8-23) mg/dL Creatinine 0.91 (0.70-1.30) mg/dL Est GFR ( Amer) > 60 (> 60) Est GFR (Non-Af Amer) > 60 (> 60) BUN/Creatinine Ratio 18 (6-26) Glucose 59 L (70-105) mg/dL Calculated Osmolality 283 (280-300) Calcium 9.2 (8.6-10.3) mg/dL Troponin I < 0.03 (< 0.04) ng/mL Urine Color Yellow (Yellow) Urine Clarity Clear (Clear) Urine pH 6.5 (5.0-8.0) pH Units Ur Specific [place] 1.010 (1.010-1.025) Urine Protein Negative (Neg-Trace) mg/dL Urine Glucose (UA) Normal (Normal) mg/dL Urine Ketones Negative (Negative) mg/dL Urine Blood Negative (Negative) Urine Nitrite Negative (Negative) Urine Bilirubin Negative (Negative) Urine Urobilinogen Normal (Normal) mg/dL Ur Leukocyte Esterase Negative (Negative) Ur Culture Indicated? NO (NO) - Radiology Data Radiology results reviewed: Yes I reviewed the patient's radiology results. Head CT 10/03/18 17:18 IMPRESSION: No acute intracranial abnormality. D/ / Shimon Reddy MD / Shimon Reddy MD Interpreting Provider: Shimon Reddy MD Chest X-Ray 10/03/18 18:24 IMPRESSION: Stable portable study. D/ / Vicky Forman Cha, MD / Vicky Forman Cha, MD Interpreting Provider: Vicky Forman Cha, MD - EKG Data EKG #1 EKG attestation: Yes I reviewed and interpreted this EKG. EKG results narrative: Patient EKG shows sinus rhythm with a heart of 65 bpm, ID interval 208 ms, QS duration of 121 ms, QT/QTc interval 451/469 ms respectively. There are no significant ST segment elevations, depressions, there are abnormal Q waves noted in lead aVR which appears isolated to that lead and consistent with prior EKG, there is an abnormal T-wave inversion in lead V3 which appears isolated that lead, there is no signs of acute ischemic change. This EKG performed today is generally consistent with prior EKG performed on September 062016. Attestation Statement - Attestation Attestation: I have seen this patient with the resident physician, I have personally evaluated this patient. I had reviewed the chart and document dictation by the resident physician and aM in agreement with the information documented by the resident physician. Please see documentation by the resident physician for complete chart including past medical history, family medical history, review of systems, current history and physical and laboratory and imaging studies. I was present for all procedures, provided direct supervision for all procedures, was present for the entirety of all procedures and provided direct guidance during the procedures. Please see documentation by the resident physician for any procedures performed. I have reviewed all interpretations of EKGs, and reviewed all EKGs performed on patient's as well. I have also reviewed reports of imaging as provided by radiology.
[2018-10-03 18:07] LABS: Hemoglobin 12.5 g/dL (12.9-16.9); Mean Corpuscular HGB Conc 32.1 g/dL (31.6-35.5); Mean Corpuscular Hemoglobin 30.6 pg (28.0-33.3); Mean Corpuscular Volume 95.6 fL (83.0-100.0); Mean Platelet Volume 10.2 fL (9.4-12.4); Platelet Count 209 K/mcL (140-400); Red Blood Count 4.08 M/mcL (4.19-5.50); Red Cell Distribution Width 13.4 % (11.5-14.5)
[2018-10-03 18:17] LABS: BUN/Creatinine Ratio 18 (6-26); Blood Urea Nitrogen 16 mg/dL (8-23); Carbon Dioxide 27 mEq/L (23-29); Chloride 100 mEq/L (98-107); Glucose 59 mg/dL (70-105); Potassium 4.6 mEq/L (3.5-5.1); Sodium 137 mEq/L (136-145); eGFR For Non-African Americans > 60 (> 60)
[2018-10-03 18:18] LABS: Calcium 9.2 mg/dL (8.6-10.3); Osmolality,Calculated 283 (280-300); Troponin I < 0.03 ng/mL (< 0.04)
[2018-10-03 18:50] LABS: Bilirubin,Urine Negative (Negative); Blood,Urine Negative (Negative); Clarity,Urine Clear (Clear); Color,Urine Yellow (Yellow); Glucose,Urine (UA) Normal (Normal); Ketones,Urine Negative (Negative); Leukocyte Esterase,Urine Negative (Negative); Nitrite,Urine Negative (Negative); PH,Urine 6.5 pH Units (5.0-8.0); Protein,Urine Negative (Neg-Trace); Urobilinogen,Urine Normal (Normal)
--- NOTE | 2018-10-03 20:43 | Emergency Department Note ---
Disposition Clinical Impression: Transient cerebral ischemia, Low blood sugar, Generalized weakness Disposition: Admitted As Inpatient Condition: Fair Referrals: Shimon Solano DO [Primary Care Provider] - Forms: ED Satisfaction Letter General Adult HPI - General Chief complaint: ED Neuro Symptoms/Deficit Stated complaint: neuro symptoms Time Seen by Provider: 10/03/18 16:28 Source: family Limitations: no limitations Nursing Notes Reviewed: Yes Vital Signs Reviewed: Yes - History of Present Illness Pain Scale: 0 - Related Data Home Medications Medication Instructions Recorded Confirmed Aspirin 81 mg PO DAILY 01/07/15 09/07/16 Isosorbide MONOnitrate (24 HR) 60 mg PO TID 01/07/15 09/07/16 [Imdur] Lisinopril [Zestril] 2.5 mg PO DAILY 01/07/15 09/07/16 Loratadine [Claritin] 10 mg PO BID 01/07/15 09/07/16 Nortriptyline [Pamelor] 75 mg PO HS 01/07/15 09/07/16 Ranolazine [Ranexa] 1,000 mg PO BID 01/07/15 09/07/16 Rosuvastatin [Crestor] 20 mg PO HS 01/07/15 09/07/16 Saxagliptin HCl [Onglyza] 5 mg PO QAM 01/07/15 09/07/16 metFORMIN [Glucophage] 1,000 mg PO BID 01/07/15 09/07/16 Carbidopa/Levodopa/Entacapone 1 tab PO QID 09/06/16 09/07/16 [Stalevo 100 Tablet] Lansoprazole [Prevacid] 30 mg PO BID 09/06/16 09/07/16 amLODIPine [Norvasc] 2.5 mg PO HS 09/06/16 09/07/16 Metoprolol [Lopressor] 100 mg PO BID 09/07/16 09/07/16 Nitroglycerin [Nitrostat] 0.4 mg SL AD PRN 09/07/16 09/07/16 Previous Rx's Medication Instructions Recorded Clopidogrel [Plavix] 75 mg PO HS #0 01/09/15 Allergies Allergy/AdvReac Type Severity Reaction Status Date / Time adhesive Allergy Hives Verified 09/06/16 19:52 morphine AdvReac Intermediate hallucinati Verified 09/06/16 19:52 ons trihexyphenidyl [From Artane] AdvReac Intermediate hallucinati Verified 09/06/16 19:52 ons meperidine [From Demerol] AdvReac Mild blood Verified 09/06/16 19:52 pressure fluctuation Past Medical History - Past Medical History Medical history: Reports: cancer, coronary artery disease, diabetes, GERD, hyperlipidemia, hypertension, myocardial infarction, other Surgical history: Reports: angioplasty/stent, appendectomy, cataract, cholecystectomy, knee replacement, vascular surgery, other Psychiatric history: Reports: no psych history - Social History Smoking Status: Current every day smoker Smokeless Tobacco Status: No Alcohol use: Reports: none Drug use: Reports: none Physical Exam - General Limitations: no limitations General appearance: alert, in no apparent distress Course Vital Signs Temperature 97.9 F 10/03/18 16:24 Pulse Rate 69 10/03/18 16:24 Respiratory Rate 18 10/03/18 16:24 Blood Pressure 129/77 10/03/18 16:24 O2 Sat by Pulse Oximetry 95 10/03/18 16:24 Temperature 97.9 F 10/03/18 16:42 Pulse Rate 64 10/03/18 20:04 Respiratory Rate 18 10/03/18 20:04 Blood Pressure 125/77 10/03/18 20:04 O2 Sat by Pulse Oximetry 98 10/03/18 20:04 Oxygen Delivery Oxygen Delivery Room Air Medical Decision Making - MDM Narrative Medical decision making narrative: I have seen this patient with the resident physician, I have personally evaluated this patient. I had reviewed the chart and document dictation by the resident physician and aM in agreement with the information documented by the resident physician. Please see documentation by the resident physician for complete chart including past medical history, family medical history, review of systems, current history and physical and laboratory and imaging studies. I was present for all procedures, provided direct supervision for all procedures, was present for the entirety of all procedures and provided direct guidance during the procedures. Please see documentation by the resident physician for any procedures performed. I have reviewed all interpretations of EKGs, and reviewed all EKGs performed on patient's as well. I have also reviewed reports of imaging as provided by radiology. Patient presents emergency Department with chief complaint of neurologic symptoms that started yesterday around noon, majority of them seemed to resolve by about 6:00, however he has still felt generally weak today. He states that he was at lunch and all of a sudden started having problems using his bilateral upper extremities with increased shaking, states he could not even lift a coffee cup because he was shaking so much, states that he has Parkinson's disease and does have some problems intermittent shaking but this was worse than usual. He states that he then tried to stand up to walk to his car and typically will walk with a cane but states he was having significant difficulty with this and that his legs both of them felt weak. 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 He noticed that he was also having some right-sided facial tingling especially around his mouth and that he had significant vision changes within his right eye where he will had significant blurred vision in his right eye only. He seems to deny homonymous hemianopsia states that seems to only been his right eye and not right visual field but is not really sure now thinking about it. The patient states that he had a significant difficult time driving himself home he was having problems controlling his legs. He states that again however apart from the vision and the face there was no unilateral symptoms and this was bilateral. He states that he got home and checked his blood sugar it was in the 80s he states that he would have expected it to have been higher because he had just eaten pizza and states that it would usually be higher than this. He states he sat in a recliner and did not get up for about 6 hours because he was worried that he wo uld fall and did not feel well. He states that after about 6 hours the right sided facial symptoms and vision symptoms went away but he still felt generally weak but not as bad. He states he did eat and his blood sugar went up to 122 he thought he felt better after that but then all day today he is still felt generally more weak. He does not think he had any misadventures with his medications he is on metformin and on glimepride. Patient states that today he has not really had any symptoms apart from both of his legs feeling somewhat weak he states that last night he had to walk with a walker once he got out of the recliner which is not usual for him, he did not have to walk with a walker today was able to use his cane and felt better but not normal. The patient states he has had a history of TIAs and of strokes, he had to of these without noticing her having symptoms, his last stroke workup was several years ago. Patient denies recent fevers chills cough sputum production chest pain shortness of breath palpitations abdominal pain back pain cold or blue discoloration of his feet or legs. He states he did not really want to come to the emergency department today as he felt he was getting better but his forced him to do so. On physical examination he has no unilateral findings, he is able to hold both arms and both legs near for 10 seconds he has normal strength sensation and reflexes he does have some mild tremor of his bilateral upper extremities which she is able to overcome. Cranial nerves are intact speech is normal visual wagner seem grossly intact. Lungs are clear heart is regular 2/6 systolic murmur no rubs or gallops abdomen is soft nontender without palpable or pulsatile Mass. without ecchymosis. There is no significant peripheral edema. Workup here in the emergency department, including EKG basic laboratory studies head CT chest x-ray showed no significant acute abnormality although his blood sugar was 59, he is awake and talking, he was given food. It is unclear as to the exact etiology of this patient's symptoms, he does de scribe some symptoms yesterday that are more concerning for potential intracranial pathology with the vision change in unilateral facial weakness or numbness sensation, however some of the symptoms are very atypical in that he had otherwise bilateral symptoms of the upper and lower extremities is possible this could have been a hypoglycemic event, with mimicking of stroke although he just eaten, and his blood sugar was in the 80s when he got home about an hour after the initiation of symptoms and his symptoms are better now and his blood sugar is 59, with the patient's unilateral symptoms, no recent stroke workup multiple risk factors for stroke, plus the fact that he does have a lower blood sugar on a sulfonylurea, it was felt that admission to the hospital for observation, was appropriate for evaluation of potential TIA and stroke as well as borderline hypoglycemia on a sulfonylurea. - Lab Data Result diagrams: 10/03/18 17:34 10/03/18 17:34 Lab Results 10/03/18 10/03/18 10/03/18 Range/Units 17:34 17:34 18:38 WBC 7.0 (4.3-11.1) K/mcL RBC 4.08 L (4.19-5.50) M/mcL Hgb 12.5 L (12.9-16.9) g/dL Hct 39.0 (37.5-50.1) % MCV 95.6 (83.0-100.0) fL MCH 30.6 (28.0-33.3) pg MCHC 32.1 (31.6-35.5) g/dL RDW 13.4 (11.5-14.5) % Plt Count 209 (140-400) K/mcL MPV 10.2 (9.4-12.4) fL Sodium 137 (136-145) mEq/L Potassium 4.6 (3.5-5.1) mEq/L Chloride 100 (98-107) mEq/L Carbon Dioxide 27 (23-29) mEq/L BUN 16 (8-23) mg/dL Creatinine 0.91 (0.70-1.30) mg/dL Est GFR ( Amer) > 60 (> 60) Est GFR (Non-Af Amer) > 60 (> 60) BUN/Creatinine Ratio 18 (6-26) Glucose 59 L (70-105) mg/dL Calculated Osmolality 283 (280-300) Calcium 9.2 (8.6-10.3) mg/dL Troponin I < 0.03 (< 0.04) ng/mL Urine Color Yellow (Yellow) Urine Clarity Clear (Clear) Urine pH 6.5 (5.0-8.0) pH Units Ur Specific [place] 1.010 (1.010-1.025) Urine Protein Negative (Neg-Trace) mg/dL Urine Glucose (UA) Normal (Normal) mg/dL Urine Ketones Negative (Negative) mg/dL Urine Blood Negative (Negative) Urine Nitrite Negative (Negative) Urine Bilirubin Negative (Negative) Urine Urobilinogen Normal (Normal) mg/dL Ur Leukocyte Esterase Negative (Negative) Ur Culture Indicated? NO (NO)
--- NOTE | 2018-10-03 23:31 | Internal Med History&Physical ---
<Jairo Siegel S - Last Filed: 10/04/18 01:11> Date of Encounter: 10/04/18 Time of Encounter: 00:18 Internal Medicine - H&P: HPI Chief complaint: weakness Admitted From: Home Plans for Post Hospital Care: Home History of present illness: Mr. Simmons is a 68 year old male with PMH of multiple MO, stenting x 8, CAD, T2DM, Parkinson's, HTN, previous TIA x 3 and GERD. He comes in today with the chief complaint of weakness and neuro symptoms. Onset of neuro s/s >24hrs ago. He developed lightheadedness, dizziness and numbness yesterday around noon. He states that he had focal weakness of his LE and had facial numbness. No family members reported slurring of the speech or facial drooping. His symptoms spont aneously resolved and he is asymptomatic once he got here. He denies any pain, chest pain, numbness/tingling. 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 In the ER he was found to have a glucose of 59. He states that he usually runs between 115-120's in the morning and never goes above 150. He is followed by Dr Solano's as an outpatient. He states he didn't even realize he was hypoglycemic. He feels that usually when he gets hypoglycemic that he gets very flushed and diaphoretic, today that didn't happen. CT head negative for acute intracranial abnormality. XR chest negative for acute process. CBC unremarkable. Pt to be admitted for observation. Past Med Surg Social Fam HX - Past Medical History Medical history: cancer, coronary artery disease, diabetes, GERD, hyperli pidemia, hypertension, myocardial infarction, other Additional medical history: Kidney stones. Parkinsons. Prostate cancer. IBS Psychiatric history: no psych history - Past Surgical History Surgical History: angioplasty/stent, appendectomy, cataract, cholecystectomy, knee replacement, vascular surgery, other Additional surgical history: StentsX5: July 2015 most recent. Bilat knees. Rotator blade heart sx. Vein ligation left leg. Prostate removed - Social History Smoking Status: Current every day smoker Smokeless Tobacco Status: No Alcohol use: none Drug use: none - Family History Mother Hx Family Cardiac Disorders: Yes Internal Medicine - H&P: Meds Aspirin 81 mg PO DAILY 01/07/15 [History] Isosorbide MONOnitrate (24 HR) [Imdur] 60 mg PO BID 01/07/15 [History] Loratadine [Claritin] 10 mg PO BID 01/07/15 [History] Nortriptyline [Pamelor] 75 mg PO HS 01/07/15 [History] Ranolazine [Ranexa] 1,000 mg PO BID 01/07/15 [History] metFORMIN [Glucophage] 1,000 mg PO BID 01/07/15 [History] Clopidogrel [Plavix] 75 mg PO HS #0 01/09/15 [Rx] amLODIPine [Norvasc] 5 mg PO HS 09/06/16 [History] Metoprolol [Lopressor] 100 mg PO BID 09/07/16 [History] Atorvastatin [Lipitor] 40 mg PO HS 10/03/18 [History] Carbidopa/Levodopa 25/100 [Sinemet 25/100] 2 each PO BID 10/03/18 [History] Glimepiride [Amaryl] 2 mg PO DAILY 10/03/18 [History] Metoclopramide [Reglan] 10 mg PO QIDAC 10/03/18 [History] raNITIdine HCl [Ranitidine HCl] 150 mg PO BID 10/03/18 [History] Allergy/AdvReac Type Severity Reaction Status Date / Time adhesive Allergy Hives Verified 09/06/16 19:52 morphine AdvReac Intermediate hallucinati Verified 09/06/16 19:52 ons trihexyphenidyl [From Artane] AdvReac Intermediate hallucinati Verified 09/06/16 19:52 ons meperidine [From Demerol] AdvReac Mild blood Verified 09/06/16 19:52 pressure fluctuation All Systems PM: A 10-system review of systems was performed and is negative for pertinent findings except as documented above in the HPI. - Constitutional Constitutional: fatigue, weakness - EENT Eyes: blurry vision, change in vision Ears: no tinnitus Nose, mouth and throat: no hoarseness - Cardiovascular Cardiovascular ROS IM: no chest pain, no dyspnea, no dyspnea on exertion - Respiratory Respiratory: no cough, no dyspnea, no dyspnea on exertion - Gastrointestinal Gastrointestinal: no abdominal pain, no diarrhea, no nausea, no vomiting - Genitourinary Genitourinary ROS male: no dysuria, no hematuria - Musculoskeletal Musculoskeletal ROS IM: back pain, limited range of motion - Integumentary Integumentary IM: no new lesions, no rash - Neurological Neurological ROS: disequilibrium, focal weakness, numbness, tingling, weakness - Psychiatric Psychiatric: memory loss - Endocrine Endocrine IM: fatigue - Hematologic/Lymphatic Hematologic/Lymphatic: no easy bleeding, no easy bruising - Constitutional Vitals: Temp Pulse Resp BP Pulse Ox 97.9 F 64 18 125/77 98 10/03/18 16:42 10/03/18 20:04 10/03/18 20:04 10/03/18 20:04 10/03/18 20:04 General appearance: Present: cooperative, A&O X 3, pleasant, no acute distress, obese Exam: x - Head Head exam: Present: atraumatic, normocephalic - Eye Eye exam: Present: EOMI, sclera anicteric - ENT ENT exam: Present: mucous membranes moist - Neck Neck exam general surgery: Present: supple, trachea midline - Respiratory Respiratory exam: Present: CTAB, prolonged expiratory phase. Absent: respiratory distress, rhonchi, stridor, wheezes, tachypnea - Cardiovascular Cardiovascular exam: Present: RRR, +S1, +S2. Absent: JVD - GI/Abdominal GI/Abdominal exam: Present: soft, no peritoneal signs. Absent: distended, guarding, rebound, tenderness - Extremities Exam Extremities exam: Present: normal capillary refill, normal inspection, warm. Absent: calf tenderness, pedal edema, tenderness - Back Exam Back exam: Absent: rash noted, tenderness - Neurological Exam Neurological exam: Present: alert, altered, CN II-XII intact, oriented X3, no focal deficits, strengths equal and symetr throughout. Absent: facial droop, speech deficit - Psychiatric Psychiatric exam: Present: normal affect, normal mood - Skin Skin exam: Present: dry, intact, warm Internal Med - H&P Results - Labs CBC & Chem 7: 10/03/18 17:34 10/03/18 17:34 Labs: Short CBC 10/03/18 Range/Units 17:34 WBC 7.0 (4.3-11.1) K/mcL Hgb 12.5 L (12.9-16.9) g/dL Hct 39.0 (37.5-50.1) % Plt Count 209 (140-400) K/mcL BMP 10/03/18 17:34 Sodium 137 Potassium 4.6 Chloride 100 Carbon Dioxide 27 BUN 16 Creatinine 0.91 Glucose 59 L Calcium 9.2 Cardiac Enzymes 10/03/18 Range/Units 17:34 Troponin I < 0.03 (< 0.04) ng/mL Urine 10/03/18 Range/Units 18:38 Urine Color Yellow (Yellow) Urine Clarity Clear (Clear) Urine pH 6.5 (5.0-8.0) pH Units Ur Specific [place] 1.010 (1.010-1.025) Urine Protein Negative (Neg-Trace) mg/dL Urine Glucose (UA) Normal (Normal) mg/dL - Impressions ITS Impressions Head CT 10/03/18 17:18 IMPRESSION: No acute intracranial abnormality. D/ / Shimon Reddy MD / Shimon Reddy MD Interpreting Provider: Shimon Reddy MD Chest X-Ray 10/03/18 18:24 IMPRESSION: Stable portable study. D/ / Vicky Forman Cha, MD / Vicky Forman Cha, MD Interpreting Provider: Vicky Forman Cha, MD - Assessment and Plan (1) Hypoglycemia Current Visit: Yes Status: Acute Assessment and plan: Pt presented with a blood glucose of 59, repeat 140 - reports increasing weakness, limb weakness, feeling "like he was going to fall over" - states he monitors BG at home, usually 115-120 in the AM, rarely goes above 180 per pt - last HbA1c in August 2018 was 7.4%, followed by Dr Jones as an outpatient - denies hypoglycemic symptoms today, states he usually becomes symptomatic during hypoglycemic events Likely medication induced from sulfonureas vs hypoglycemic masking from beta zack Plan: - hold lopressor - hold home diabetes medications - consider decreasing BB due to hypoglycemic masking vs decreasing antiglycemic agents - continue accuchecks - FEN: diabetic diet - DVT prophylaxis: sq heparin - dispo: obs pt, TIA/weakness workup, PTOT consulted (2) Transient cerebral ischemia Current Visit: Yes Status: Acute Assessment and plan: Pt reports generalized weakness, focal limb weakness and facial numbness - has a hx of TIA, last in 2009, as per pt CT head showed no acute intracranial abnormality - There are old right basal ganglia lacunar infarcts Plan: - ECHO pending - carotid duplex US pending - MRI brain in AM, r/o stroke and evaluate basal ganglia infarcts further - consider neurology consult if MRI abnormal Qualifiers: Transient cerebral ischemia type: unspecified Qualified Code(s): G45.9 - Transient cerebral ischemic attack, unspecified (3) GERD (gastroesophageal reflux disease) Current Visit: No Status: Chronic Assessment and plan: con't pepcid, chronic. Qualifiers: Esophagitis presence: esophagitis presence not specified Qualified Code(s): K21.9 - Gastro-esophageal reflux disease without esophagitis (4) Coronary artery disease Current Visit: No Status: Chronic Assessment and plan: extensive cardiac hx. Continue ASA, plavix, statin. Consider decreasing lopressor. Previous ECHO from 2017: LVEF 60-65%. Mild concentric left ventricular hypertrophy. No evidence of pulmonary hypertension. No significant valvular dysfunction. Qualifiers: Coronary Disease-Associated Artery/Lesion type: [place] artery [place] vs. transplanted heart: [place] heart Associated angina: without angina Qualified Code(s): I25.10 - Atherosclerotic heart disease of [place] coronary artery without angina pectoris (5) Diabetes Current Visit: No Status: Chronic Assessment and plan: Known T2DM. Hold home rx. ADA/cardiac diet. Accuchecks. Qualifiers: Diabetes mellitus type: type 2 Diabetes mellitus watermelon inspector insulin use: without watermelon inspector use Diabetes mellitus complication status: without complication Qualified Code(s): E11.9 - Type 2 diabetes mellitus without complications (6) Hyperlipemia Current Visit: No Status: Chronic Assessment and plan: con't statin. chronic. Qualifiers: Hyperlipidemia type: mixed hyperlipidemia Qualified Code(s): E78.2 - Mixed hyperlipidemia (7) History of Parkinson's disease Current Visit: No Status: Chronic Assessment and plan: con't sinemet. chronic. (8) DVT prophylaxis Current Visit: No Status: Acute Assessment and plan: sq heparin (9) Generalized weakness Current Visit: Yes Status: Acute Assessment and plan: PTOT consulted. See plan as above for TIA. (10) History of prostate cancer Current Visit: No Status: Chronic Assessment and plan: s/p prostate removal. (11) Tobacco abuse Current Visit: No Status: Chronic Assessment and plan: smokes tobacco pipe daily, counseled. (12) Obesity (BMI 30-39.9) Current Visit: No Status: Chronic Assessment and plan: BMI 36.1, counseled. - Time Spent With Patient Total time spent is greater than 50% in coordination of care (as documented) at patient's floor/unit and/or counseling patient: 25 - 35 minutes <Luis Parra - Last Filed: 10/04/18 06:20> Date of Encounter: 10/04/18 Internal Medicine - H&P: HPI History of present illness: Mr. Simmons is a 68 year old male All Systems PM: A 10-system review of systems was performed and is negative for pertinent findings except as documented above in the HPI. - Constitutional Vitals: Temp Pulse Resp BP Pulse Ox 97.9 F 62 16 113/73 94 10/03/18 23:29 10/03/18 23:29 10/03/18 23:29 10/03/18 23:29 10/03/18 23:29 Internal Med - H&P Results - Labs CBC & Chem 7: 10/03/18 17:34 10/03/18 17:34 Labs: Short CBC 10/03/18 Range/Units 17:34 WBC 7.0 (4.3-11.1) K/mcL Hgb 12.5 L (12.9-16.9) g/dL Hct 39.0 (37.5-50.1) % Plt Count 209 (140-400) K/mcL BMP 10/03/18 17:34 Sodium 137 Potassium 4.6 Chloride 100 Carbon Dioxide 27 BUN 16 Creatinine 0.91 Glucose 59 L Calcium 9.2 Cardiac Enzymes 10/03/18 Range/Units 17:34 Troponin I < 0.03 (< 0.04) ng/mL Urine 10/03/18 Range/Units 18:38 Urine Color Yellow (Yellow) Urine Clarity Clear (Clear) Urine pH 6.5 (5.0-8.0) pH Units Ur Specific [place] 1.010 (1.010-1.025) Urine Protein Negative (Neg-Trace) mg/dL Urine Glucose (UA) Normal (Normal) mg/dL - Impressions ITS Impressions Head CT 10/03/18 17:18 IMPRESSION: No acute intracranial abnormality. D/ / Shimon Reddy MD / Shimon Reddy MD Interpreting Provider: Shimon Reddy MD Chest X-Ray 10/03/18 18:24 IMPRESSION: Stable portable study. D/ / Vicky Forman Cha, MD / Vicky Forman Cha, MD Interpreting Provider: Vicky Forman Cha, MD - Assessment and Plan (1) GERD (gastroesophageal reflux disease) Current Visit: No Status: Chronic Qualifiers: Esophagitis presence: esophagitis presence not specified Qualified Code(s): K21.9 - Gastro-esophageal reflux disease without esophagitis (2) Coronary artery disease Current Visit: No Status: Chronic Qualifiers: Coronary Disease-Associated Artery/Lesion type: [place] artery [place] vs. transplanted heart: [place] heart Associated angina: without angina Qualified Code(s): I25.10 - Atherosclerotic heart disease of [place] coronary artery without angina pectoris (3) Diabetes Current Visit: No Status: Chronic Qualifiers: Diabetes mellitus type: type 2 Diabetes mellitus longterm insulin use: without longterm use Diabetes mellitus complication status: without complication Qualified Code(s): E11.9 - Type 2 diabetes mellitus without complications (4) Hyperlipemia Current Visit: No Status: Chronic Qualifiers: Hyperlipidemia type: mixed hyperlipidemia Qualified Code(s): E78.2 - Mixed hyperlipidemia (5) History of Parkinson's disease Current Visit: No Status: Chronic (6) DVT prophylaxis Current Visit: No Status: Acute (7) Transient cerebral ischemia Current Visit: Yes Status: Acute Qualifiers: Transient cerebral ischemia type: unspecified Qualified Code(s): G45.9 - Transient cerebral ischemic attack, unspecified (8) Generalized weakness Current Visit: Yes Status: Acute (9) Hypoglycemia Current Visit: Yes Status: Acute (10) History of prostate cancer Current Visit: No Status: Chronic (11) Tobacco abuse Current Visit: No Status: Chronic (12) Obesity (BMI 30-39.9) Current Visit: No Status: Chronic - Time Spent With Patient Total time spent is greater than 50% in coordination of care (as documented) at patient's floor/unit and/or counseling patient: - Attending Attestation I performed a history and physical examination of the patient and discussed his management with the resident. I reviewed the resident's note and agree with the documented plan of care. In short patient is a 68-year-old male with a past medical history of diabetes, Parkinson's and TIA 3 who presented to the ED with complaints of acute onset bilateral lower extremity weakness associated with perioral numbness, tremors and blurry vision of the right eye. Symptoms can begin more than 24 hours prior to presentation. Patient reported checking his blood glucose shortly after symptoms began and reported it to be 87. This was after consuming a pizza one hour prior. Patient states that he had to use his walker to ambulate and could arise from a seated position but had difficulty getting into his truck for example. No reports of trauma, headache, tenderness in the temporal regions or unilateral weakness. Patient reports with previous TIA he did have facial numbness. Symptoms persisted for approximately 6 hours and spontaneously resolved. On arrival patient was noted to have a blood glucose of 59. Patient states that his blood glucose typically does not run low and usually has symptoms of hypoglycemia including significant diaphoresis. Patient is however on a beta zack. CT scan of the head showed no acute intracranial abnormality. Patient currently at his baseline. Suspect symptoms likely secondary to hypoglycemia however, his history of TIA and Parkinson's cannot be discounted. We will obtain MRI of the brain to rule out stroke, echocardiogram and bilateral carotid duplex. Consider neurology consult for any positive findings. Patient otherwise has follow-up appointment with his neur ologist in the upcoming week.
[2018-10-04] MEDS ORDERED: Naloxone 0.4 MG/ML INJ IVP PRN
[2018-10-04] MEDS ORDERED: Gadolinium Contrast Agent (WT Based) IV PRN (01:10)
[2018-10-04] MEDS: *HR* Heparin 5,000 UNIT/ML VIAL SQ SCH ×2 (06:17→17:17)
[2018-10-04 06:52] LABS: Hematocrit 40.8 % (37.5-50.1); Hemoglobin 12.6 g/dL (12.9-16.9); Mean Corpuscular HGB Conc 30.9 g/dL (31.6-35.5); Mean Corpuscular Hemoglobin 29.7 pg (28.0-33.3); Mean Corpuscular Volume 96.2 fL (83.0-100.0); Mean Platelet Volume 10.2 fL (9.4-12.4); Platelet Count 213 K/mcL (140-400); Red Blood Count 4.24 M/mcL (4.19-5.50); Red Cell Distribution Width 13.5 % (11.5-14.5)
[2018-10-04] MEDS ORDERED: Dextrose Gel 15 GM/37.5 ML TUBE PO PRN ×2 (07:28)
[2018-10-04] MEDS ORDERED: *HR* Dextrose 50 % in Water (Syg) 50 ML SYRINGE IVP PRN (07:28)
[2018-10-04] MEDS ORDERED: D5% in Water 1,000 ML IVC PRN (07:28)
[2018-10-04 07:59] LABS: BUN/Creatinine Ratio 15 (6-26); Blood Urea Nitrogen 14 mg/dL (8-23); Calcium 9.4 mg/dL (8.6-10.3); Carbon Dioxide 31 mEq/L (23-29); Chloride 99 mEq/L (98-107); Glucose 94 mg/dL (70-105); Osmolality,Calculated 286 (280-300); Potassium 4.3 mEq/L (3.5-5.1); Sodium 138 mEq/L (136-145); eGFR For Non-African Americans > 60 (> 60)
[2018-10-04] MEDS: Insulin LISPRO 300 UNITS/3 ML VIAL SQ SCH ×3 (08:24→17:17)
[2018-10-04] MEDS: Famotidine 20 MG TABLET PO SCH ×2 (08:52→17:17)
[2018-10-04] MEDS ORDERED: Isosorbide MONOnitrate (24 HR) 60 MG TAB.ER.24H PO SCH (09:00)
[2018-10-04] MEDS ORDERED: Loratadine 10 MG TABLET PO SCH (09:00)
[2018-10-04] MEDS ORDERED: Ranolazine 500 MG TAB.ER.12H PO SCH (09:00)
[2018-10-04] MEDS ORDERED: Carbidopa/Levodopa 25/100 TABLET PO SCH (09:00)
[2018-10-04] MEDS ORDERED: Metoprolol 100 MG TABLET PO SCH (09:00)
[2018-10-04] MEDS ORDERED: Aspirin 81 MG TAB.CHEW PO SCH (09:00)
--- NOTE | 2018-10-04 09:24 | Internal Med Progress Note ---
Hospitalist Progress Note - Encounter Date of Encounter: 10/04/18 Time of Encounter: 09:22 - Subjective Interval History: Patient seen and examined in the room. He is alert and oriented 3, in reported leg weakness, numbness/tingling have resolved. He denies headache, neck pain, fever, or seizure activity. - Exam Vitals: Temp Pulse Resp BP Pulse Ox 98.0 F 67 16 116/75 93 10/04/18 07:47 10/04/18 07:47 10/04/18 07:47 10/04/18 07:47 10/04/18 07:47 Exam: PHYSICAL EXAMINATION: GENERAL APPEARANCE: The patient is alert, oriented and in no acute distress. HEENT: Head is normocephalic. The sinuses are nontender. Pupils are equal and reactive. The nares are patent. Oropharynx clear without lesions. NECK: Supple without lymphadenopathy. HEART: Regular rate and rhythm. LUNGS: No crackles or wheezes are heard. ABDOMEN: Soft, nontender, nondistended with good bowel sounds heard. Inguinal area is normal. EXTREMITIES: Without cyanosis, clubbing or edema. NEUROLOGICAL: Gross nonfocal. SKIN: Warm and dry without any rash. - Assessment and Plan (1) Transient cerebral ischemia Current Visit: Yes Status: Suspected Assessment and Plan: 10/03 Pt reports generalized weakness, focal limb weakness and facial numbness - has a hx of TIA, last in 2009, as per pt CT head showed no acute intracranial abnormality - There are old right basal ganglia lacunar infarcts Plan: - ECHO pending - carotid duplex US pending - MRI brain in AM, r/o stroke and evaluate basal ganglia infarcts further - consider neurology consult if MRI abnormal. 10/04 Patient reported weakness/numbness/tingling has resolved. Pending MRI of brain, will consult neurology if indicated. (2) Generalized weakness Current Visit: Yes Status: Acute Assessment and Plan: PT/OT consulted. See plan as above for TIA. (3) Hypoglycemia Current Visit: Yes Status: Acute Assessment and Plan: 10/03 Pt presented with a blood glucose of 59, repeat 140 - reports increasing weakness, limb weakness, feeling "like he was going to fall over" - states he monitors BG at home, usually 115-120 in the AM, rarely goes above 180 per pt - last HbA1c in August 2018 was 7.4%, followed by Dr Jones as an outpatient - denies hypoglycemic symptoms today, states he usually becomes symptomatic during hypoglycemic events Likely medication induced from sulfonureas vs hypoglycemic masking from beta zack Plan: - hold lopressor - hold home diabetes medications - consider decreasing BB due to hypoglycemic masking vs decreasing antiglycemic agents - continue accuchecks - FEN: diabetic diet - DVT prophylaxis: sq heparin - dispo: obs pt, TIA/weakness workup, PTOT consulted. 10/04 Patient recently was started on Amaryl. Reviewing his blood sugar in the past, he never had hypoglycemic event in the system. Encouraged patient to follow up with Dr. Jones and switch to a different oral hypoglycemic agent. Continue insulin sliding scale. (4) GERD (gastroesophageal reflux disease) Current Visit: No Status: Chronic Assessment and Plan: con't pepcid, chronic. (5) Coronary artery disease Current Visit: No Status: Chronic Assessment and Plan: extensive cardiac hx. Continue ASA, plavix, statin. Consider decreasing lopressor. Previous ECHO from 2017: LVEF 60-65%. Mild concentric left ventricular hypertrophy. No evidence of pulmonary hypertension. No significant valvular dysfunction. (6) Diabetes Current Visit: No Status: Chronic Assessment and Plan: Known T2DM. Hold home rx. ADA/cardiac diet. Accuchecks. (7) Hyperlipemia Current Visit: No Status: Chronic Assessment and Plan: con't statin. chronic. (8) History of Parkinson's disease Current Visit: No Status: Chronic Assessment and Plan: con't sinemet. chronic. (9) History of prostate cancer Current Visit: No Status: Chronic Assessment and Plan: s/p prostate removal. (10) Tobacco abuse Current Visit: No Status: Chronic Assessment and Plan: smokes tobacco pipe daily, counseled. (11) Obesity (BMI 30-39.9) Current Visit: No Status: Chronic Assessment and Plan: BMI 36.1, counseled. (12) DVT prophylaxis Current Visit: No Status: Acute Assessment and Plan: sq heparin - Time Spent with Patient Total time spent is greater than 50% in coordination of care (as documented) at patient's floor/unit and/or counseling patient: Greater than 35 minutes Plan of Care Discussed with: patient Internal Medicine: Result - Labs CBC & Chem 7: 10/04/18 02:30 10/04/18 07:04 Labs: Short CBC 10/03/18 10/04/18 Range/Units 17:34 02:30 WBC 7.0 7.9 (4.3-11.1) K/mcL Hgb 12.5 L 12.6 L (12.9-16.9) g/dL Hct 39.0 40.8 (37.5-50.1) % Plt Count 209 213 (140-400) K/mcL BMP 10/03/18 10/04/18 17:34 07:04 Sodium 137 138 Potassium 4.6 4.3 Chloride 100 99 Carbon Dioxide 27 31 H BUN 16 14 Creatinine 0.91 0.94 Glucose 59 L 94 Calcium 9.2 9.4 Cardiac Enzymes 10/03/18 Range/Units 17:34 Troponin I < 0.03 (< 0.04) ng/mL Urine 10/03/18 Range/Units 18:38 Urine Color Yellow (Yellow) Urine Clarity Clear (Clear) Urine pH 6.5 (5.0-8.0) pH Units Ur Specific [place] 1.010 (1.010-1.025) Urine Protein Negative (Neg-Trace) mg/dL Urine Glucose (UA) Normal (Normal) mg/dL - Impressions Impressions Head CT 10/03/18 17:18 IMPRESSION: No acute intracranial abnormality. D/ / Shimon Reddy MD / Shimon Reddy MD Interpreting Provider: Shimon Reddy MD Chest X-Ray 10/03/18 18:24 IMPRESSION: Stable portable study. D/ / Vicky Forman Cha, MD / Vicky Forman Cha, MD Interpreting Provider: Vicky Forman Cha, MD Consult Discharge Plan - Plan Referrals: Shimon Solano DO [Primary Care Provider] - (1) Transient cerebral ischemia Qualifiers: Transient cerebral ischemia type: unspecified Qualified Code(s): G45.9 - Transient cerebral ischemic attack, unspecified (4) GERD (gastroesophageal reflux disease) Qualifiers: Esophagitis presence: esophagitis presence not specified Qualified Code(s): K21.9 - Gastro-esophageal reflux disease without esophagitis (5) Coronary artery disease Qualifiers: Coronary Disease-Associated Artery/Lesion type: [place] artery [place] vs. transplanted heart: [place] heart Associated angina: without angina Qualified Code(s): I25.10 - Atherosclerotic heart disease of [place] coronary artery without angina pectoris (6) Diabetes Qualifiers: Diabetes mellitus type: type 2 Diabetes mellitus moth exterminator insulin use: w ithout fdc use Diabetes mellitus complication status: without compli cation Qualified Code(s): E11.9 - Type 2 diabetes mellitus without complic ations (7) Hyperlipemia Qualifiers: Hyperlipidemia type: mixed hyperlipidemia Qualified Code(s): E78.2 - Mixed hyperlipidemia
--- NOTE | 2018-10-04 10:23 | Electrocardiograph Report ---
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
[2018-10-04 14:58] VITALS: BP 145/80
--- NOTE | 2018-10-04 17:58 | Discharge Summary ---
- NOTES TO OUTPATIENT PROVIDER Notes to Outpatient Provider: f/u with Dr. Jones within 2 weeks. f/u with PCP within a week. Orders not resulted at time of discharge: Pending orders 10/05/18 04:00 BMP [Basic Metabolic Panel] AM 0400 Date of Encounter: 10/04/18 Time of Encounter: 17:55 - Discharge Diagnosis (1) Generalized weakness Priority: Primary Status: Acute (2) Hypoglycemia Priority: Primary Status: Acute (3) GERD (gastroesophageal reflux disease) Priority: Secondary Status: Chronic Qualifiers: Esophagitis presence: esophagitis presence not specified Qualified Code(s): K21.9 - Gastro-esophageal reflux disease without esophagitis (4) Coronary artery disease Priority: Secondary Status: Chronic Qualifiers: Coronary Disease-Associated Artery/Lesion type: [place] artery [place] vs. transplanted heart: [place] heart Associated angina: without angina Qualified Code(s): I25.10 - Atherosclerotic heart disease of [place] coronary artery without angina pectoris (5) Diabetes Priority: Secondary Status: Chronic Qualifiers: Diabetes mellitus type: type 2 Diabetes mellitus pediatric associate insulin use: without group home use Diabetes mellitus complication status: without complication Qualified Code(s): E11.9 - Type 2 diabetes mellitus without complications (6) Hyperlipemia Priority: Secondary Status: Chronic Qualifiers: Hyperlipidemia type: mixed hyperlipidemia Qualified Code(s): E78.2 - Mixed hyperlipidemia (7) History of Parkinson's disease Priority: Secondary Status: Chronic (8) History of prostate cancer Priority: Secondary Status: Chronic (9) Tobacco abuse Priority: Secondary Status: Chronic (10) Obesity (BMI 30-39.9) Priority: Secondary Status: Chronic (11) DVT prophylaxis Priority: Primary Status: Acute Hospital course: Mr. Simmons is a 68 year old male with PMH of multiple IN, stenting x 8, CAD, T2DM, Parkinson's, HTN, previous TIA x 3 and GERD. He comes in today with the chief complaint of weakness and neuro symptoms. Onset of neuro s/s >24hrs ago. He developed lightheadedness, dizziness and numbness yesterday around noon. He states that he had focal weakness of his LE and had facial numbness. No family members reported slurring of the speech or facial drooping. His symptoms spontaneously resolved and he is asymptomatic once he got here. He denies any pain, chest pain, numbness/tingling. 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 In the ER he was found to have a glucose of 59. He states that he usually runs between 115-120's in the morning and never goes above 150. He is followed by Dr Solano's as an outpatient. He states he didn't even realize he was hypoglycemic. He feels that usually when he gets hypoglycemic that he gets very flushed and diaphoretic, today that didn't happen. CT head negative for acute intracranial abnormality. XR chest negative for acute process. CBC unremarkable. Pt to be admitted for observation. Carotid Doppler showed nonstenotic plaques bilaterally. Echocardiogram was performed which revealed normal ejection fraction without PFO. MRI brain has no acute CVA. Since patient's symptoms resolved after hypoglycemia was corrected, it is likely that his symptoms was caused by low blood glucose level. 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 Patient is discharged home today, he was instructed to discontinue Amaryl, follow-up with Dr. Jones within 2 weeks, and follow-up with PCP within one week. Discharge discussed with: patient Time spent discussing smoking cessation with patient: more than 10 minutes - Time Spent with Patient Total time spent providing and/or coordinating discharge services: Time spent: Greater than 30 minutes - Discharge Medications Prescriptions: Continued Aspirin 81 mg PO DAILY Nortriptyline [Pamelor] 75 mg PO HS metFORMIN [Glucophage] 1,000 mg PO BID amLODIPine [Norvasc] 5 mg PO HS Metoprolol [Lopressor] 100 mg PO BID Atorvastatin [Lipitor] 40 mg PO HS Metoclopramide [Reglan] 10 mg PO DAILY raNITIdine HCl [Ranitidine HCl] 150 mg PO BID Carbidopa/Levodopa ER 50/200 [Sinemet ER 50-200 Tab] 1 tab PO TID Clopidogrel [Plavix] 75 mg PO DAILY Isosorbide MONOnitrate (24 HR) [Imdur] 60 mg PO BID Loratadine [Allergy Relief] 10 mg PO DAILY Ranolazine [Ranexa] 1,000 mg PO BID Nitroglycerin [Nitrostat] 0.4 mg PO Q5MIN PRN PRN Reason: Chest Pain Discontinued Glimepiride [Amaryl] 2 mg PO DAILY Home Medications: Aspirin 81 mg PO DAILY 01/07/15 [History] Nortriptyline [Pamelor] 75 mg PO HS 01/07/15 [History] metFORMIN [Glucophage] 1,000 mg PO BID 01/07/15 [History] amLODIPine [Norvasc] 5 mg PO HS 09/06/16 [History] Metoprolol [Lopressor] 100 mg PO BID 09/07/16 [History] Atorvastatin [Lipitor] 40 mg PO HS 10/03/18 [History] Metoclopramide [Reglan] 10 mg PO DAILY 10/03/18 [History] raNITIdine HCl [Ranitidine HCl] 150 mg PO BID 10/03/18 [History] Carbidopa/Levodopa ER 50/200 [Sinemet ER 50-200 Tab] 1 tab PO TID 10/04/18 [History] Clopidogrel [Plavix] 75 mg PO DAILY 10/04/18 [History] Isosorbide MONOnitrate (24 HR) [Imdur] 60 mg PO BID 10/04/18 [History] Loratadine [Allergy Relief] 10 mg PO DAILY 10/04/18 [History] Nitroglycerin [Nitrostat] 0.4 mg PO Q5MIN PRN 10/04/18 [History] Ranolazine [Ranexa] 1,000 mg PO BID 10/04/18 [History] Allergies/Adverse Reactions: Allergy/AdvReac Type Severity Reaction Status Date / Time adhesive Allergy Hives Verified 10/04/18 16:00 morphine AdvReac Intermediate hallucinati Verified 10/04/18 16:00 ons trihexyphenidyl [From Artane] AdvReac Intermediate hallucinati Verified 10/04/18 16:00 ons meperidine [From Demerol] AdvReac Mild blood Verified 10/04/18 16:00 pressure fluctuation Date of admission: 10/03/18 22:20 Primary care physician: Shimon Solano DO Consults: 10/03/18 23:33 Consult to Occupational Therapy [CONS] Routine Comment: Evaluate, develop and implement POC Reason for Consult: weakness Does patient have active BEDREST order?: No Is patient medically & hemodynamically stable?: Yes Patient assessed for mobility or mobilized this visit?: No Consult to Physical Therapy [CONS] Routine Comment: Evaluate, develop and implement POC Reason for Consult: weakness Does patient have active BEDREST order?: No Is patient medically & hemodynamically stable?: Yes Patient assessed for mobility or mobilized this visit?: No Anticipated date of discharge: 10/04/18 - Constitutional Vitals: Temp Pulse Resp BP Pulse Ox 97.5 F L 89 18 145/80 96 10/04/18 14:54 10/04/18 14:54 10/04/18 14:54 10/04/18 14:54 10/04/18 14:54 General appearance: Present: cooperative, A&O X 3, pleasant, no acute distress, obese Exam: PHYSICAL EXAMINATION: GENERAL APPEARANCE: The patient is alert, oriented and in no acute distress. HEENT: Head is normocephalic. The sinuses are nontender. Pupils are equal and reactive. The nares are patent. Oropharynx clear without lesions. NECK: Supple without lymphadenopathy. HEART: Regular rate and rhythm. LUNGS: No crackles or wheezes are heard. ABDOMEN: Soft, nontender, nondistended with good bowel sounds heard. Inguinal area is normal. EXTREMITIES: Without cyanosis, clubbing or edema. NEUROLOGICAL: Gross nonfocal. SKIN: Warm and dry without any rash. - Patient Status Disposition: Home, Self-Care Condition: Fair Functional capacity at discharge: independent ambulation Overall status at discharge: patient is progressing back to baseline - Discharge Instructions Follow Up With: Shimon Solano DO [Primary Care Provider] - 10/08/18 2:00 pm - Diet and Activity Activity: increase activity as tolerated Diet: diabetic diet, low fat, low cholesterol, low salt diet
[2018-10-04] MEDS ORDERED: Insulin LISPRO 300 UNITS/3 ML VIAL SQ SCH (21:00)
[2018-10-04] MEDS ORDERED: amLODIPine 5 MG TABLET PO SCH (21:00)
== END 2018-10-04 18:58 | disposition home or self-care (01) ==
LOC: 3BNU 16:22 → EMEROOARM 16:22 → 3BNU 22:55
PROVIDERS: ADMIT Internal Medicine; ATTEND Internal Medicine